=== PATIENT | female | born 1950 | race Hispanic/Latino ===

== ENCOUNTER 2017-01-27 09:59 | Emergency (ER) | payer MEDICARE ==
--- NOTE | 2017-01-27 12:25 | XRay Report ---
LEFT WRIST RADIOGRAPHS INDICATION: Ground level fall. COMPARISON: None similar. FINDINGS: AP, lateral and oblique left wrist radiographs, 3 projections demonstrate intact carpal rows and also remainder imaged bones. Grossly unremarkable soft tissues. CONCLUSION: No acute left wrist radiographic abnormality, as described. Thank you for the opportunity to participate in this patient's care.
--- NOTE | 2017-01-27 12:29 | XRay Report ---
LEFT ELBOW RADIOGRAPHS INDICATION: Fall. COMPARISON: None similar. FINDINGS: AP, lateral and oblique left elbow radiographs demonstrate a radial neck fracture with approximately 2 mm cortical displacement and questionable comminution. No definite radial articular surface involvement with grossly intact remainder elbow articulation. Subtle posterior fat-pad sign and small lateral epicondyle spur suspected. CONCLUSION: Acute left radial neck fracture, as described. Thank you for the opportunity to participate in this patient's care.
[2017-01-27] MEDS ORDERED: TORADOL IM ONE (14:39)
--- NOTE | 2017-01-27 14:54 | Emergency Department Report ---
ED Extremity Problem HPI - General Chief complaint: Fall Stated complaint: POSS LFT ARM BROKEN Time Seen by Provider: 01/27/17 14:22 Source: patient Mode of arrival: Ambulatory Limitations: No Limitations - History of Present Illness Initial comments: PT states last night she was walking her 55 lb dog. PT states the dog saw a squirrel and went to ciara the squirrel, knocking pt down in the progress. PT states she hurt her L arm. PT states she thought she sprained her elbow. PT states she placed her arm in a sling and that helped the pain. PT states the pain in her elbow increases when she moves her L wrist. PT has not taken any medication for this and she drove herself to the hospital. MD Complaint: joint paint Onset/Timin -: Sudden, days(s) Location: left, upper extremity, elbow Severity scale (0 -10): 7 Quality: aching, sharp Consistency: constant Improves with: rest, other (sling ) Worsens with: palpation, other (movement of L arm/ wrist ) Associated Symptoms: denies other symptoms - Related Data Previous Rx's Medication Instructions Recorded Last Taken Type HYDROcodone/APAP 5-325 [[place] 1 each PO Q6HR PRN #14 tablet 01/27/17 Unknown Rx 5/325] Ibuprofen [Motrin] 600 mg PO Q8H PRN #20 tablet 01/27/17 Unknown Rx Allergies Allergy/AdvReac Type Severity Reaction Status Date / Time No Known Allergies Allergy Unverified 01/27/17 10:23 ED Review of Systems ROS: Stated complaint: POSS LFT ARM BROKEN Other details as noted in HPI Comment: All other systems reviewed and negative Respiratory: denies: cough Cardiovascular: denies: chest pain Gastrointestinal: denies: nausea, vomiting Musculoskeletal: as per HPI Skin: change in color (bruising ) Neurological: other (denies syncope ). denies: headache ED Past Medical Hx - Past Medical History Previous Medical History?: Yes Hx Hypertension: Yes - Surgical History Past Surgical History?: Yes Hx Appendectomy: Yes Additional Surgical History: right ovary removed, Hysterectomy, Right wrist surgery x 2, D&C - Social History Smoking Status: Never Smoker Substance Use Type: Alcohol, Prescribed - Medications Home Medications: Home Medications Medication Instructions Recorded Confirmed Last Taken Type HYDROcodone/APAP 5-325 [[place] 1 each PO Q6HR PRN #14 tablet 01/27/17 Unknown Rx 5/325] Ibuprofen [Motrin] 600 mg PO Q8H PRN #20 tablet 01/27/17 Unknown Rx ED Physical Exam - General Limitations: No Limitations General appearance: alert, in no apparent distress - Head Head exam: Present: atraumatic, normocephalic, normal inspection - Eye Eye exam: Present: normal appearance. Absent: conjunctival injection - ENT ENT exam: Present: normal exam, normal external ear exam - Neck Neck exam: Present: normal inspection, full ROM. Absent: tenderness - Respiratory Respiratory exam: Present: normal lung sounds bilaterally. Absent: respiratory distress, wheezes, chest wall tenderness - Cardiovascular Cardiovascular Exam: Present: regular rate, normal rhythm, normal heart sounds - Extremities Exam Extremities exam: Present: tenderness - Expanded Upper Extremity Exam Left Shoulder Exam: Present: normal inspection, full ROM. Absent: tenderness, swelling Upper Arm exam: Present: normal inspection Elbow exam: Present: normal inspection, tenderness, swelling, ecchymosis. Absent: full ROM Forearm Wrist exam: Present: normal inspection, full ROM. Absent: tenderness, swelling, ecchymosis Neuro motor exam: Present: fingers 2-5 abduction intact Vascular: Present: vascular compromise - Back Exam Back exam: Present: normal inspection, full ROM. Absent: tenderness, CVA tenderness (R), CVA tenderness (L), muscle spasm, paraspinal tenderness, vertebral tenderness - Neurological Exam Neurological exam: Present: alert, oriented X3, normal gait - Psychiatric Psychiatric exam: Present: normal affect, normal mood - Skin Skin exam: Present: warm, dry, ecchymosis ED Course Vital Signs 01/27/17 01/27/17 10:24 15:35 Temperature 97.9 F Pulse Rate 84 80 Respiratory 20 18 Rate Blood Pressure 159/83 Blood Pressure 168/73 [Right] O2 Sat by Pulse 96 98 Oximetry - Reevaluation(s) Reevaluation #1: 01/27/17 14:59 PT aware of dx and plan of care. PT has no questions at this time. Reevaluation #2: 01/27/17 15:29 PT placed in splint by nursing staff. PT NVI. pt reports decrease in pain - Pulse Oximetry Interpretation Digit-Finger Initial Pulse Oximetry Readin Actions Taken: none ED Medical Decision Making - Radiology Data Radiology results: report reviewed, image reviewed L wrist - NAP L elbow - acute radial neck fracture - Differential Diagnosis fracture, contusion, strain Critical Care Time: No Critical care attestation.: If time is entered above; I have spent that time in minutes in the direct care of this critically ill patient, excluding procedure time. ED Disposition Clinical Impression: Left wrist pain Fall Qualifiers: Encounter type: initial encounter Qualified Code(s): W19.XXXA - Unspecified fall, initial encounter Fracture of radial neck, left, closed Qualifiers: Encounter type: initial encounter Fracture alignment: displaced Qualified Code( s): S52.132A - Displaced fracture of neck of left radius, initial encounter for closed fracture Disposition: DISCHARGED TO HOME OR SELFCARE Is pt being admited?: No Does the pt Need Aspirin: No Condition: Stable Instructions: Elbow Fracture in Adults (ED), Splint Care (ED), RICE Therapy (ED ) Additional Instructions: No driving or ETOH after [place] Prescriptions: HYDROcodone/APAP 5-325 [[place] 5/325] 1 each PO Q6HR PRN #14 tablet PRN Reason: Pain Ibuprofen [Motrin] 600 mg PO Q8H PRN #20 tablet PRN Reason: Pain Referrals: LIZZIE SALAMANCA DO [Primary Care Provider] - 3-5 Days MARAH AZEVEDO MD [Staff Physician] - 3-5 Days
[2017-01-27 15:36] VITALS: BP 168/73
== END 2017-01-27 15:54 | disposition home or self-care (01) ==
LOC: ED 09:59
DX: S52.132A Displaced fracture of neck of left radius, initial encounter for closed fracture (principal); I10 Essential (primary) hypertension; W18.30XA Fall on same level, unspecified, initial encounter; Y93.9 Activity, unspecified; Y92.9 Unspecified place or not applicable; Y99.9 Unspecified external cause status
CPT/HCPCS: 29105; 73080; 73110; 96372; 99283; J1885

== ENCOUNTER 2021-07-13 10:52 | Emergency (ER) | payer MEDICARE ==
[2021-07-13] MEDS ORDERED: MORPHINE 4 MG/1 ML INJ IV ONE (11:16)
[2021-07-13] MEDS ORDERED: ONDANSETRON 4 MG/2 ML INJ IV ONE (11:16)
--- NOTE | 2021-07-13 11:16 | Emergency Department Report ---
ED General Adult HPI - General Chief complaint: Extremity Injury, Upper Stated complaint: GROUND LEVEL FALL/POSS RT ARM FX PUI?: No Time Seen by Provider: 07/13/21 11:06 Source: patient, RN notes reviewed, old records reviewed Mode of arrival: Stretcher Limitations: Physical Limitation - History of Present Illness Initial comments: The patient is a 71-year-old female. She is right-hand dominant. She is brought to the hospital by emergency medical services. EMS documentation not available at time of chart dictation history obtained from patient. Patient presents to the ER today with complaints of traumatic right arm pain. The patient states that she was in her usual state of health earlier on this morning, while walking her dog. The dog pulled her forward, and she fell, and landed on her right arm and left knee. She also scraped her nose and hit her head on the curb. The patient does not take blood thinning medications. The patient endorses mild nasal discomfort. The patient denies headache, neck pain, chest pain, abdominal pain, shortness of breath, weakness and numbness. She denies urinary symptoms. She has sharp throbbing right-sided arm pain, which increases with palpation and range of motion. She has sharp throbbing left-sided knee pain, which increases with palpation and decreases with range of motion. Denies other injuries. Reports that she lives at home by herself. -: Sudden Location: face Radiation: non-radiation Quality: aching Consistency: other Improves with: other Worsens with: other - Related Data Previous Rx's Medication Instructions Recorded Last Taken Type Acetaminophen [Non-Aspirin Extra 500 mg PO Q6HR PRN #30 tablet 07/13/21 Unknown Rx Strength] Ibuprofen [Motrin] 200 mg PO Q8H PRN #30 tablet 07/13/21 Unknown Rx Morphine Sulfate [Morphine Sulfate 7.5 mg PO Q6HR PRN #10 tablet 07/13/21 Unknown Rx IR] Ondansetron [Zofran Odt] 4 mg PO Q8HR PRN #20 tab.rapdis 07/13/21 Unknown Rx Allergies Allergy/AdvReac Type Severity Reaction Status Date / Time No Known Allergies Allergy Verified 07/13/21 11:46 ED Review of Systems ROS: Stated complaint: GROUND LEVEL FALL/POSS RT ARM FX Other details as noted in HPI Constitutional: denies: fever Eyes: denies: eye discharge ENT: denies: epistaxis Respiratory: denies: cough Cardiovascular: denies: chest pain Gastrointestinal: denies: abdominal pain Genitourinary: denies: dysuria Musculoskeletal: joint swelling, arthralgia, myalgia Skin: other (Abrasion) Neurological: denies: numbness, paresthesias Psychiatric: anxiety Hematological/Lymphatic: denies: easy bleeding ED Past Medical Hx - Past Medical History Previous Medical History?: Yes Hx Hypertension: Yes - Surgical History Past Surgical History?: Yes Hx Appendectomy: Yes Additional Surgical History: right ovary removed, Hysterectomy, Right wrist surgery x 2, D&C - Social History Smoking Status: Never Smoker Substance Use Type: Alcohol, Prescribed - Medications Home Medications: Home Medications Medication Instructions Recorded Confirmed Last Taken Type Acetaminophen [Non-Aspirin Extra 500 mg PO Q6HR PRN #30 tablet 07/13/21 Unknown Rx Strength] Ibuprofen [Motrin] 200 mg PO Q8H PRN #30 tablet 07/13/21 Unknown Rx Morphine Sulfate [Morphine Sulfate 7.5 mg PO Q6HR PRN #10 tablet 07/13/21 Unknown Rx IR] Ondansetron [Zofran Odt] 4 mg PO Q8HR PRN #20 tab.rapdis 07/13/21 Unknown Rx ED Physical Exam - General Limitations: Physical Limitation General appearance: alert, anxious, obese - Head Head exam: Present: normocephalic, other (There is a midline mid nasal abrasion noted, abutting the inferior aspect of the 4) - Eye Eye exam: Present: normal appearance, EOMI. Absent: nystagmus - ENT ENT exam: Present: normal orophraynx, mucous membranes moist, normal external ear exam - Neck Neck exam: Present: normal inspection, full ROM. Absent: tenderness, meningismus - Respiratory Respiratory exam: Present: normal lung sounds bilaterally. Absent: respiratory distress, wheezes, rales, rhonchi, stridor, decreased breath sounds - Cardiovascular Cardiovascular Exam: Present: regular rate, normal rhythm, normal heart sounds. Absent: bradycardia, tachycardia, irregular rhythm, systolic murmur, diastolic murmur, rubs, gallop - GI/Abdominal GI/Abdominal exam: Present: soft. Absent: distended, tenderness, guarding, rebound, rigid, pulsatile mass - Extremities Exam Extremities exam: Present: full ROM (Full range of motion to the right lower extremity and left upper extremity), tenderness (Left lower extremity is tender in the anterior knee, lateral and medial joint line. The pelvis is nontender. The femur is nontender. The fibula/tibia is nontender. The ankles are nontender.), other (2+ pulses noted in the bilateral upper and lower extremities. The right arm is tender at the elbow, and at the proximal/midline humerus. The left knee is tender.). Absent: normal inspection (There is an abrasion noted to the anterior aspect of the left knee.), calf tenderness - Back Exam Back exam: Present: normal inspection, full ROM. Absent: tenderness, CVA tenderness (R), CVA tenderness (L), paraspinal tenderness, vertebral tenderness - Neurological Exam Neurological exam: Present: alert, other (No facial droop. Tongue midline. Extraocular movements intact bilaterally. Facial sensation intact to light touch in V1, V2, V3 distribution bilaterally. 5 and a 5 strength in 4 extremities. Sensation intact to light touch in 4 extremities.). Absent: motor sensory deficit (Sensation is intact to light touch in the deltoid, median, radial, and ulnar distribution of the right upper extremity) - Psychiatric Psychiatric exam: Present: anxious - Skin Skin exam: Present: warm, abrasion (Abrasion noted to the nose) ED Course Vital Signs 07/13/21 07/13/21 07/13/21 11:02 11:20 11:22 Temperature 97.9 F 97.7 F Pulse Rate 67 84 Respiratory 18 16 14 Rate Blood Pressure 180/90 176/81 [Right] O2 Sat by Pulse 95 94 94 Oximetry 07/13/21 07/13/21 07/13/21 11:40 13:39 13:49 Temperature Pulse Rate 74 76 Respiratory 14 14 10 L Rate Blood Pressure 170/69 165/74 [Right] O2 Sat by Pulse 98 100 Oximetry 07/13/21 07/13/21 07/13/21 13:54 13:59 14:19 Temperature Pulse Rate 81 80 70 Respiratory 19 19 10 L Rate Blood Pressure 172/76 173/81 174/69 [Right] O2 Sat by Pulse 95 97 100 Oximetry - Reevaluation(s) Reevaluation #1: 07/13/21 11:56 Differential diagnosis, including not limited to: Sprain, strain, fracture, dislocation, abrasion, closed head injury Assessment and plan: 71-year-old female, who is afebrile, with reassuring vital signs, clinically sober, with a GCS of 15, with right arm pain and injury, left knee pain and injury, and nasal abrasion, and closed head injury. Given advanced age, and mechanism, obtain CT scan of the brain and cervical spine. Obtain x-rays of the right upper extremity, and x-ray of the left knee. Treat pain aggressively. Administer tetanus vaccination. Reassess after x- rays have resulted. Discussed this plan of care with the patient. She is agreeable to the plan of care. All questions answered. 07/13/21 15:45 Patient was found to have a right-sided shoulder dislocation. The shoulder was reduced without complication. Please see my procedure note. Noncontrast CT scan of the brain and cervical spine negative for acute traumatic findings. Multiple incidental findings noted. On repeat and final evaluation, patient is awake, alert, oriented and sober. She has no elbow, forearm, or humerus tenderness. She remains neurovascularly intact, sensation and function intact to the deltoid, median, radial, ulnar distribution. She lives at home by herself, she is able to contact friends or family should she require assistance, and she has the ability to obtain an uber ride home Discussed the natural history of fall, shoulder dislocation. Patient articulated understanding. All questions answered. - Moderate Sedation Indications: fracture/dislocation redu Presedation Evaluation: Patient is a 71-year-old female with a history of hypertension. She does not smoke cigarettes. Her last time that she consumed food was at 730 this morning. She is not had any issues with anesthesia. Discussed risk, benefits and alternatives of moderate sedation for closed reduction of right-sided shoulder dislocation. Offered patient moderate sedation with closed reduction, versus intra-articular injection, with parenteral opioids. Patient requested moderate sedation with closed reduction. Discussed risk, benefits and alternatives. All questions answered. Patient provided verbal informed consent as she is not able to sign consent she is secondary to dislocated shoulder. This is witnessed by nurse Dot Felton Sedation started at 13: 47 Sedation stopped 13: 54 ASA Class: II Mallampati Airway Score: 2 Preparation: independent agent music education applied, pulse oximeter, capnometry used, supplemental O2 applied, suction/airway equipment at bedside Ketamine: IV Ketamine Dose: 25 IV Propofol Dose (mgs): 25 Complications: none Patient Tolerated Procedure: well - Orthopedic Joint Reduction Joint #1 Consent Obtained: verbal consent, emergent situation Time Out Performed: Yes Side: right Joint Reduction Location: shoulder Analgesia: moderate sedation Shoulder Technique Used (if applicable): scapula manipulation Post-Reduction Neuro Exam: intact Post-Reduction Vascular Exam: intact Post Reduction X-Ray Obtained: Yes Post Reduction X-Ray Results: reduced Splint Applied: Yes Patient Tolerated Procedure: well - Orthopedic Splinting/Casting Injury #1 Side: right Upper Extremity Injury Location: shoulder Upper Extremity Immobilizer: sling/shoulder immobilize ED Medical Decision Making - Lab Data Vital Signs 07/13/21 07/13/21 07/13/21 11:02 11:20 11:22 Temperature 97.9 F 97.7 F Pulse Rate 67 84 Respiratory 18 16 14 Rate Blood Pressure 180/90 176/81 [Right] O2 Sat by Pulse 95 94 94 Oximetry 07/13/21 11:40 Temperature Pulse Rate Respiratory 14 Rate Blood Pressure [Right] O2 Sat by Pulse Oximetry - Radiology Data Radiology results: pending, report reviewed, image reviewed RIGHT ELBOW 3 VIEWS INDICATION / CLINICAL INFORMATION: Trauma with right elbow pain. COMPARISON: None available. FINDINGS: Positioning is suboptimal due to patient's inability to cooperate. BONES / JOINT(S): There are mild degenerative changes. There is no evidence of acute fracture or subluxation. SOFT TISSUES: No significant abnormality. ADDITIONAL FINDINGS: None. Signer Name: Jorge Luis Stewart MD Signed: 07/13/2021 11:32 AM Workstation Name: [id number] RIGHT ELBOW 3 VIEWS INDICATION / CLINICAL INFORMATION: Trauma with right elbow pain. COMPARISON: None available. FINDINGS: Positioning is suboptimal due to patient's inability to cooperate. BONES / JOINT(S): There are mild degenerative changes. There is no evidence of acute fracture or subluxation. SOFT TISSUES: No significant abnormality. ADDITIONAL FINDINGS: None. Signer Name: Jorge Luis Stewart MD Signed: 07/13/2021 11:32 AM Workstation Name: [id number] LEFT KNEE 4 VIEWS INDICATION / CLINICAL INFORMATION: Trauma with left knee pain.. COMPARISON: None available. FINDINGS: BONES / JOINT(S): There are moderate tricompartmental degenerative changes, most prominent involving the medial tibiofemoral joint. There is no evidence of acute fracture, subluxation or joint effusion. SOFT TISSUES: There is moderate localized soft tissue swelling anterior to the infrapatellar tendon. ADDITIONAL FINDINGS: None. Signer Name: Jorge Luis Stewart MD Signed: 07/13/2021 11:33 AM Workstation Name: [id number] CT head/brain wo con INDICATION / CLINICAL INFORMATION: 71 years Female; close head injury. TECHNIQUE: Routine CT head without contrast. All CT scans at this location are performed using CT dose reduction for ALARA by means of automated exposure control. COMPARISON: None. FINDINGS: BRAIN / INTRACRANIAL CONTENTS: Multiple lacunar infarcts are seen in the gangliocapsular regions, some of which are age-indeterminate without diffusion imaging by MRI. Bilateral globus p allidus injuries seen-would question history of anoxic episode. Anterior thalamic lacunar infarct suggested on the right. More subtle edema suggested in the anterior thalamic region on the left, which may suggest acute injury. Old, small branch SCA infarct seen on the right. There may be mild encephalomalacia in the anterior temporal lobe on the right. Otherwise, no acute hemorrhage, mass effect, midline shift, hydrocephalus, or acute, large territorial infarct. Mild, diffuse cerebral and cerebellar atrophy. There are moderate, somewhat confluent areas of decreased attenuation in the white matter of the cerebral hemispheres. These are nonspecific findings and may be related to microangiopathy (hypertension, diabetes, atherosclerosis), given the patient's age. It might be difficult to evaluate for small areas of ischemia without diffusion imaging by MRI. CRANIOCERVICAL JUNCTION: No significant abnormality. ORBITS: No significant abnormality of visualized orbits. SINUSES / MASTOIDS: Mild mucosal thickening seen in the ethmoids. ADDITIONAL FINDINGS: Atherosclerotic disease is seen in the anterior and posterior circulation. IMPRESSION: 1. No focal mass, hemorrhage, hydrocephalus, or acute, large territorial infarct. Follow-up with diffusion imaging by MRI, as clinically warranted. 2. Significant white matter and gangliocapsular disease, as described above. Signer Name: Pipo Lanier MD, III Signed: 07/13/2021 2:04 PM Workstation Name: [id number] CT cervical spine wo con INDICATION / CLINICAL INFORMATION: 71 years Female; fall right arm break, closed head injury. TECHNIQUE: Axial CT images of the cervical spine were obtained. Sagittal and coronal reformatted images were produced. All CT scans at this location are performed using CT dose reduction for ALARA by means of automated exposure control. COMPARISON: None available. FINDINGS: POST-SURGICAL CHANGES: None. ALIGNMENT: Straightening of the cervical spine noted, which may be related to patient positioning. VERTEBRAE: No signs of fracture. Vertebral bodies are grossly normal in height throughout. Mild to moderate osseous foraminal narrowing seen on the right at C5-6 and C6-7 from uncinate and/or facet hypertrophy. Similar findings noted on the left the same levels, as well as C2-3. Mild, multilevel facet hypertrophy noted. INTRAVERTEBRAL DISCS: Mild disc space narrowing seen at C5-6 and C6-7. Mild disc disease seen at various levels. No significant canal stenosis. PARASPINAL SOFT TISSUES: No significant abnormality. ADDITIONAL FINDINGS: Prominent left thyroid lobe is seen. There may be a large indistinct nodule present in this region. Smaller nodules are suggested in the more normally sized right thyroid lobe. Ultrasound would be helpful for further evaluation. There is mild deviation of the trachea towards the right. Left mastoid air cells are underdeveloped. IMPRESSION: 1. No signs of acute bony trauma to the cervical spine. 2. Enlarged left thyroid lobe as described above. Ultrasound would be helpful for further evaluation, if clinically warranted. Signer Name: Pipo Lanier MD, III Signed: 07/13/2021 2:16 PM Workstation Name: [id number] RIGHT SHOULDER 2 VIEWS INDICATION / CLINICAL INFORMATION: right shoulder dislocation/post reduction COMPARISON: 07/13/2021 FINDINGS: BONES / JOINT(S): There is been successful reduction of dislocated right shoulder. No fracture is seen on the 2 images obtained. SOFT TISSUES: No significant abnormality. ADDITIONAL FINDINGS: None. Signer Name: Stephan Rodriguez MD Signed: 07/13/2021 1:26 PM Workstation Name: [id number] Critical care attestation.: If time is entered above; I have spent that time in minutes in the direct care of this critically ill patient, excluding procedure time. ED Disposition Clinical Impression: Left knee pain, Closed head injury, Nasal abrasion, Knee abrasion, Right arm pain, Fall, Dislocation of right shoulder joint Disposition: 01 HOME / SELF CARE / HOMELESS Is pt being admited?: No Does the pt Need Aspirin: No Condition: Good Instructions: Moderate Conscious Sedation, Adult, Shoulder Dislocation, Acute Knee Pain, Adult, Musculoskeletal Pain Additional Instructions: Please take the pain medication and nausea medication as needed and/or directed. When taking the morphine sulfate, do not drive, consume alcohol, or make important decisions. Exercise caution when taking this medication as it is an opioid medication. Morphine sulfate may be addictive and habit-forming, so use sparingly. We do recommend the patient follow-up with a primary care doctor in the next 2 to 3 days for a repeat checkup and evaluation. Patient had a mechanical fall today, and was found to have a right shoulder dislocation, which was reduced in the emergency room. Patient had additional diagnostic studies, CT scan of the brain, and CT scan of the cervical spine, which showed no acute or emergent medical findings. Incidental presumably chronic findings were noted, which will require follow-up by your outpatient primary care doctor. Please have your primary care doctor contact the medical records department to obtain copies of radiology studies. Please keep the shoulder sling in place. Please follow-up with your primary care doctor or orthopedist in the next 5 to 7 days for repeat checkup and evaluation of the right shoulder and right upper extremity. Please do not remove the sling until cleared to do so by your primary care doctor or orthopedist. Please return to the emergency room right away with new pain, worsened pain, migration of pain, projectile vomiting, change in mental status, confusion, inability to tolerate liquid feeds, new, worsened or different symptoms not present on the initial emergency room evaluation. The patient should not consume alcohol for the next 24 hours, and should not drive or operate motor vehicles for the next 24 hours. Referrals: JANI BELCHER MD [Primary Care Provider] - 3-5 Days [facility] [Provider Group] - 3-5 Days
[2021-07-13] MEDS ORDERED: TETANUS,DIPH,PERTUSS(ACELL) VACCINE 0.5 ML SYRINGE IM ONE (11:17)
[2021-07-13] MEDS ORDERED: MORPHINE 2 MG/1 ML INJ ONE (11:35)
[2021-07-13] MEDS ORDERED: KETAMINE 500 MG/5 ML VIAL MDV IV ONE (12:09)
[2021-07-13] MEDS ORDERED: propofoL 200 MG/20 ML VIAL IV ONE (12:09)
--- NOTE | 2021-07-13 12:35 | XRay Report ---
RIGHT HUMERUS 2 VIEWS INDICATION / CLINICAL INFORMATION: Trauma with right arm pain. COMPARISON: None available. FINDINGS: BONES / JOINT(S): There is inferior and medial displacement of the humeral head in relationship to th e glenoid. There is a probable associated Hill-Sachs lesion involving the humeral head superolaterall y. The remainder of the humerus is unremarkable. There are moderate degenerative changes involving th e acromioclavicular joint. SOFT TISSUES: No significant abnormality. ADDITIONAL FINDINGS: The visualized right lung is clear. IMPRESSION: Anterior dislocation of the right shoulder with a probable associated Hill-Sachs lesion. Signer Name: Jorge Luis Stewart MD Signed: 07/13/2021 12:30 PM Workstation Name: [id number]
--- NOTE | 2021-07-13 12:36 | XRay Report ---
RIGHT ELBOW 3 VIEWS INDICATION / CLINICAL INFORMATION: Trauma with right elbow pain. COMPARISON: None available. FINDINGS: Positioning is suboptimal due to patient's inability to cooperate. BONES / JOINT(S): There are mild degenerative changes. There is no evidence of acute fracture or subl uxation. SOFT TISSUES: No significant abnormality. ADDITIONAL FINDINGS: None. Signer Name: Jorge Luis Stewart MD Signed: 07/13/2021 12:32 PM Workstation Name: [id number]
--- NOTE | 2021-07-13 12:37 | XRay Report ---
LEFT KNEE 4 VIEWS INDICATION / CLINICAL INFORMATION: Trauma with left knee pain.. COMPARISON: None available. FINDINGS: BONES / JOINT(S): There are moderate tricompartmental degenerative changes, most prominent involving the medial tibiofemoral joint. There is no evidence of acute fracture, subluxation or joint effusion. SOFT TISSUES: There is moderate localized soft tissue swelling anterior to the infrapatellar tendon. ADDITIONAL FINDINGS: None. Signer Name: Jorge Luis Stewart MD Signed: 07/13/2021 12:33 PM Workstation Name: [id number]
[2021-07-13] MEDS ORDERED: SODIUM CHLORIDE 0.9% 1000 ML 1,000 ML ONE (13:40)
[2021-07-13] MEDS ORDERED: SODIUM CHLORIDE 0.9% 500 ML 500 ML IV ONE (13:46)
--- NOTE | 2021-07-13 14:31 | XRay Report ---
RIGHT SHOULDER 2 VIEWS INDICATION / CLINICAL INFORMATION: right shoulder dislocation/post reduction COMPARISON: 07/13/2021 FINDINGS: BONES / JOINT(S): There is been successful reduction of dislocated right shoulder. No fracture is see n on the 2 images obtained. SOFT TISSUES: No significant abnormality. ADDITIONAL FINDINGS: None. Signer Name: Stephan Rodriguez MD Signed: 07/13/2021 2:26 PM Workstation Name: [id number]
--- NOTE | 2021-07-13 15:08 | Cat Scan Report ---
. CT head/brain wo con INDICATION / CLINICAL INFORMATION: 71 years Female; close head injury. TECHNIQUE: Routine CT head without contrast. All CT scans at this location are performed using CT dos e reduction for ALARA by means of automated exposure control. COMPARISON: None. FINDINGS: BRAIN / INTRACRANIAL CONTENTS: Multiple lacunar infarcts are seen in the gangliocapsular regions, liam e of which are age-indeterminate without diffusion imaging by MRI. Bilateral globus pallidus injuries seen-would question history of anoxic episode. Anterior thalamic lacunar infarct suggested on the ri ght. More subtle edema suggested in the anterior thalamic region on the left, which may suggest acute injury. Old, small branch SCA infarct seen on the right. There may be mild encephalomalacia in the anterior temporal lobe on the right. Otherwise, no acute hemorrhage, mass effect, midline shift, hydrocephalus, or acute, large territori al infarct. Mild, diffuse cerebral and cerebellar atrophy. There are moderate, somewhat confluent areas of decreased attenuation in the white matter of the cere bral hemispheres. These are nonspecific findings and may be related to microangiopathy (hypertension, diabetes, atherosclerosis), given the patient's age. It might be difficult to evaluate for small are as of ischemia without diffusion imaging by MRI. CRANIOCERVICAL JUNCTION: No significant abnormality. ORBITS: No significant abnormality of visualized orbits. SINUSES / MASTOIDS: Mild mucosal thickening seen in the ethmoids. ADDITIONAL FINDINGS: Atherosclerotic disease is seen in the anterior and posterior circulation. IMPRESSION: 1. No focal mass, hemorrhage, hydrocephalus, or acute, large territorial infarct. Follow-up with diff usion imaging by MRI, as clinically warranted. 2. Significant white matter and gangliocapsular disease, as described above. Signer Name: Pipo Lanier MD, III Signed: 07/13/2021 3:04 PM Workstation Name: [id number]
--- NOTE | 2021-07-13 15:20 | Cat Scan Report ---
CT cervical spine wo con INDICATION / CLINICAL INFORMATION: 71 years Female; fall right arm break, closed head injury. TECHNIQUE: Axial CT images of the cervical spine were obtained. Sagittal and coronal reformatted images were pr oduced. All CT scans at this location are performed using CT dose reduction for ALARA by means of aut omated exposure control. COMPARISON: None available. FINDINGS: POST-SURGICAL CHANGES: None. ALIGNMENT: Straightening of the cervical spine noted, which may be related to patient positioning. VERTEBRAE: No signs of fracture. Vertebral bodies are grossly normal in height throughout. Mild to moderate osseous foraminal narrowing seen on the right at C5-6 and C6-7 from uncinate and/or facet hypertrophy. Similar findings noted on the left the same levels, as well as C2-3. Mild, multilevel facet hypertrophy noted. INTRAVERTEBRAL DISCS: Mild disc space narrowing seen at C5-6 and C6-7. Mild disc disease seen at vari ous levels. No significant canal stenosis. PARASPINAL SOFT TISSUES: No significant abnormality. ADDITIONAL FINDINGS: Prominent left thyroid lobe is seen. There may be a large indistinct nodule pres ent in this region. Smaller nodules are suggested in the more normally sized right thyroid lobe. Ultr asound would be helpful for further evaluation. There is mild deviation of the trachea towards the ri ght. Left mastoid air cells are underdeveloped. IMPRESSION: 1. No signs of acute bony trauma to the cervical spine. 2. Enlarged left thyroid lobe as described above. Ultrasound would be helpful for further evaluation, if clinically warranted. Signer Name: Pipo Lanier MD, III Signed: 07/13/2021 3:16 PM Workstation Name: [email or web address]
[2021-07-13 17:25] VITALS: BP 172/76
== END 2021-07-13 16:30 | disposition home or self-care (01) ==
LOC: ED 10:52
DX: S43.084A Other dislocation of right shoulder joint, initial encounter (principal); S00.31XA Abrasion of nose, initial encounter; S80.212A Abrasion, left knee, initial encounter; S09.90XA Unspecified injury of head, initial encounter; I10 Essential (primary) hypertension; Z90.49 Acquired absence of other specified parts of digestive tract; Z90.710 Acquired absence of both cervix and uterus; Z98.890 Other specified postprocedural states; Z72.89 Other problems related to lifestyle; Z79.899 Other long term (current) drug therapy; W18.39XA Other fall on same level, initial encounter; Y93.89 Activity, other specified; Y92.89 Other specified places as the place of occurrence of the external cause; Y99.8 Other external cause status
CPT/HCPCS: 23650; 70450; 72125; 73030; 73060; 73070; 73562; 90471; 90715; 96374; 96375; 99284; J2270; J2405; J2704; J7030